=== PATIENT | male | born 1985 | race Caucasian/White ===

== ENCOUNTER → 2021-02-20 | Outpatient (CLI) | payer OTHER | END | disposition home or self-care (01) | LOC: COVID19 15:54 | PROVIDERS: ATTEND Internal Medicine | DX: Z11.52 Encounter for screening for COVID-19 (principal) ==

== ENCOUNTER 2023-09-19 11:22 | Emergency (ER) | payer OTHER ==
[~2023-09-19] VITALS: Ht 185.4 cm; Wt 77.1 kg
[2023-09-19] MEDS ORDERED: methylPREDNISolone sod succ 125 MG VIAL IM ONE (11:45)
[2023-09-19] MEDS ORDERED: PREDNISONE10 MG PO (11:45)
== END 2023-09-19 11:59 | disposition home or self-care (01) ==
LOC: ED 11:22
DX: L25.9 Unspecified contact dermatitis, unspecified cause (principal)

== ENCOUNTER 2023-10-11 16:50 | Emergency (ER) | payer OTHER ==
[~2023-10-11] VITALS: Ht 185.4 cm; Wt 77.1 kg
[~2023-10-11 16:50] MED LIST: PREDNISONE10 MG PO
[2023-10-11] MEDS ORDERED: hydrOXYzine pamoate 25 MG CAP PO ONE (17:15)
[2023-10-11] MEDS ORDERED: ELIMITE 5%60 GM T (17:21)
[2023-10-11] MEDS ORDERED: VISTARIL25 MG PO (17:21)
[2023-10-11] MEDS ORDERED: TRIAMCINOLONE430 GM TD (17:21)
[2023-10-11] MEDS ORDERED: TRAZODONE150 MG PO (17:59)
== END 2023-10-11 18:03 | disposition home or self-care (01) ==
LOC: ED 16:50
DX: R21 Rash and other nonspecific skin eruption (principal); S20.96XA Insect bite (nonvenomous) of unspecified parts of thorax, initial encounter; W57.XXXA Bitten or stung by nonvenomous insect and other nonvenomous arthropods, initial encounter; Y93.89 Activity, other specified; Y92.89 Other specified places as the place of occurrence of the external cause; Y99.0 Civilian activity done for income or pay

== ENCOUNTER → 2024-07-01 | Outpatient (CLI) | payer OTHER ==
[~2024-07-01] MED LIST changes: +ELIMITE 5%60 GM T; +TRAZODONE150 MG PO; +TRIAMCINOLONE430 GM TD; +VISTARIL25 MG PO
== END | disposition home or self-care (01) ==
LOC: RAD 14:35
PROVIDERS: ATTEND Nurse Practitioner Family
DX: R04.2 Hemoptysis (principal); R05.9 Cough, unspecified

== ENCOUNTER 2024-08-05 02:14 | Emergency (ER) | payer OTHER ==
[~2024-08-05] VITALS: Ht 185.4 cm; Wt 81.2 kg
[2024-08-05] MEDS ORDERED: diazePAM 10 MG/2 ML SYR IV ONE (03:30)
[2024-08-05] MEDS ORDERED: methylPREDNISolone sod succ 125 MG VIAL IV ONE (03:30)
[2024-08-05] MEDS ORDERED: METHOCARBAMOL750 M1 PO (05:19)
== END 2024-08-05 05:37 | disposition home or self-care (01) ==
LOC: ED 02:14
DX: S16.1XXA Strain of muscle, fascia and tendon at neck level, initial encounter (principal); Z79.899 Other long term (current) drug therapy; X58.XXXA Exposure to other specified factors, initial encounter; Y93.89 Activity, other specified; Y92.89 Other specified places as the place of occurrence of the external cause; Y99.8 Other external cause status